=== PATIENT | male | born 1955 | race African-American/Black ===

== ENCOUNTER 2021-09-22 18:43 | Inpatient (IN) | payer OTHER ==
[~2021-09-22] VITALS: Ht 182.9 cm; Wt 104.8 kg
[2021-09-22 19:11] LABS: BASOPHILS % 0.8 % (0.0-2.0); EOSINOPHILS % 1.4 % (0.0-5.0); HEMATOCRIT. 36.9 % (42.0-52.0); HEMOGLOBIN. 11.9 g/dL (14.0-18.0); LYMPHOCYTES % 14.6 % (20.0-50.0); MEAN CORPUSCULAR HEMOGLOBIN 23.5 pg (28.0-32.0); MEAN CORPUSCULAR VOLUME 72.9 fL (80.0-94.0); MEAN PLATELET VOLUME 8.5 fl (7.4-10.4); MONOCYTES % 6.1 % (2.0-8.0); NEUTROPHILS % 77.1 % (40.0-76.0); PLATELET 332 x1000/uL (130-400); RED BLOOD CELL COUNT 5.07 mill/uL (4.7-6.1); RED CELL DISTRIBUTION WIDTH 18.3 % (11.6-14.6)
[2021-09-22 19:16] LABS: CHLORIDE 103 mEq/L (98-107)
[2021-09-22] MEDS ORDERED: ALBUTEROL (0.083%) 2.5MG/3ML NEB HHN STA (19:30)
[2021-09-22] MEDS ORDERED: IPRATROPIUM BROMIDE (0.02%) 0.5MG/2.5ML NEB HHN STA (19:30)
[2021-09-22] MEDS ORDERED: METHYLPREDNISOLONE SOD SUCC 125 MG/2 ML VIAL IV STA (19:30)
[2021-09-22 19:40] LABS: BG BASE EXCESS 1.5 mmol/L (-2.0-2.0); BG CARBOXYHEMOGLOBIN 0.6 % (0.5-1.5); BG DEOXYHEMOGLOBIN 2.4 % (0.0-5.0); BG FRACTION INSPIRED OXYGEN 100; BG HCO3 ACT 27.3 mmol/L (22.0-26.0); BG METHEMOGLOBIN 0.2 % (0.0-1.5); BG OXYGEN SATURATION 97.6 % (92.0-98.5); BG OXYHEMOGLOBIN 96.8 % (94.0-97.0); BG PCO2 48.5 mmHg (35.0-45.0); BG PH 7.369 (7.350-7.450); BG PO2 102.5 mmHg (75.0-100.0); BG SAMPLE SITE RIGHT RADIAL; BG TOTAL HEMOGLOBIN 12.4 g/dL (12.0-18.0); BG VENT MODE MASK - NRB
[2021-09-22] MEDS ORDERED: ONDANSETRON HCL 4MG/2ML INJ IV STA (21:47)
[2021-09-22] MEDS ORDERED: MORPHINE SULFATE 4 MG/ML CPJ (NOT FOR IM USE) IV STA (21:47)
[2021-09-22] MEDS ORDERED: CEFTRIAXONE 1 G PREMIX 50 ML IV ONE (22:00)
[2021-09-22] MEDS ORDERED: IPRATROPIUM/ALBUTEROL 0.5-3(2.5)MG/3ML NEB HHN PRN (22:15)
[2021-09-22] MEDS ORDERED: MAGNESIUM/ALUMINUM HYDROXIDE/SIMETHICONE 30ML UDC PO PRN (22:15)
[2021-09-22] MEDS ORDERED: NALOXONE HCL 0.4MG/ML VIAL IV PRN (22:15)
[2021-09-22] MEDS ORDERED: DIPHENHYDRAMINE 50MG/ML VIAL IV PRN (22:15)
[2021-09-23] MEDS: MORPHINE SULFATE 2 MG/ML CPJ (NOT FOR IM USE) IV PRN ×5 (04:52→22:08)
[2021-09-23] MEDS: SODIUM CHLORIDE 0.9% INJ 3ML FLUSH IVF SCH (05:41)
[2021-09-23 05:45] LABS: HEMATOCRIT. 36.9 % (42.0-52.0); HEMOGLOBIN. 11.5 g/dL (14.0-18.0); MEAN CORPUSCULAR HEMOGLOBIN 22.8 pg (28.0-32.0); MEAN CORPUSCULAR VOLUME 72.9 fL (80.0-94.0); PLATELET 324 x1000/uL (130-400); RED BLOOD CELL COUNT 5.07 mill/uL (4.7-6.1); RED CELL DISTRIBUTION WIDTH 18.6 % (11.6-14.6)
[2021-09-23 05:54] LABS: CHLORIDE 103 mEq/L (98-107)
[2021-09-23] MEDS ORDERED: LIDOCAINE HCL/EPINEPHRINE 1%-EPI 1:100,000 30 ML VIAL INFIL ONE (07:00)
[2021-09-23] MEDS ORDERED: LIDOCAINE HCL/EPINEPHRINE 1%-EPI 1:100,000 20 ML VIAL INFIL ONE (07:15)
[2021-09-23] MEDS ORDERED: LIDOCAINE HCL/EPINEPHRINE 1%-EPI 1:100,000 10 ML VIAL INFIL ONE (07:15)
[2021-09-23] MEDS: LORAZEPAM 2MG/ML CPJ IV PRN (08:55)
[2021-09-23] MEDS ORDERED: MORPHINE SULFATE 4 MG/ML CPJ (NOT FOR IM USE) IV SCH (09:00)
[2021-09-23] MEDS ORDERED: LORAZEPAM 2MG/ML CPJ IV NR (09:00)
[2021-09-23] MEDS ORDERED: MORPHINE SULFATE 4 MG/ML CPJ (NOT FOR IM USE) IV NR ×2 (09:22→11:33)
[2021-09-23 11:05] LABS: PLATELET ESTIMATE NORMAL
[2021-09-23] MEDS ORDERED: LIDOCAINE HCL 1% 10 MG/ML 10ML VIAL IJ NR ×2 (11:15)
[2021-09-23 12:00] VITALS: BP_SYST 144; BP_DIAS 87; BP_DIAS 89
[2021-09-23 13:23] LABS: CHLORIDE 102 mEq/L (98-107)
[2021-09-23 13:28] LABS: BG BASE EXCESS 0.9 mmol/L (-2.0-2.0); BG CARBOXYHEMOGLOBIN 0.3 % (0.5-1.5); BG DEOXYHEMOGLOBIN 0.6 % (0.0-5.0); BG HCO3 ACT 27.6 mmol/L (22.0-26.0); BG METHEMOGLOBIN 0.3 % (0.0-1.5); BG OXYGEN SATURATION 99.4 % (92.0-98.5); BG OXYHEMOGLOBIN 98.8 % (94.0-97.0); BG PCO2 53.5 mmHg (35.0-45.0); BG PO2 252.6 mmHg (75.0-100.0); BG SAMPLE SITE RIGHT RADIAL; BG VENT MODE VAPOTHERM
[2021-09-23] MEDS ORDERED: SODIUM POLYSTYRENE SULFONATE 15 G/60 ML BOT PO NR (13:45)
[2021-09-23 14:00] VITALS: BP 138/86
[2021-09-23 16:00] VITALS: BP 154/105
[2021-09-23 18:00] VITALS: BP 128/88
[2021-09-23] MEDS ORDERED: PNEUMOCOCCAL 23-VAL P-SAC VAC 0.5 ML IM ONE (19:00)
[2021-09-23] MEDS: PREDNISONE 20MG TABLET PO SCH ×3 (19:30→23:00)
[2021-09-23 20:00] VITALS: BP 127/85
[2021-09-23] MEDS ORDERED: PREDNISONE 20MG TABLET PO SCH ×2 (23:00)
[2021-09-23] MEDS ORDERED: ALBUTEROL (0.083%) 2.5MG/3ML NEB HHN NR (23:00)
[2021-09-23] MEDS ORDERED: PREDNISONE 10MG TABLET PO SCH (23:00)
[2021-09-23] MEDS: PREDNISONE 10MG TABLET PO SCH (23:04)
[2021-09-23] MEDS: FAMOTIDINE 20MG TABLET PO SCH (23:04)
[2021-09-23] MEDS ORDERED: PRED-276 PO (23:14)
[2021-09-23] MEDS ORDERED: FAMO40TA7 PO (23:15)
[2021-09-23] MEDS ORDERED: FLUT1BLS3 INH (23:18)
[2021-09-23] MEDS ORDERED: CARI350T27 PO (23:20)
[2021-09-23] MEDS ORDERED: FURO20TA4 PO (23:20)
[2021-09-23] MEDS ORDERED: SULF1TAB48 PO ×2 (23:21→23:34)
[2021-09-23] MEDS ORDERED: NINT150C PO (23:22)
[2021-09-23] MEDS ORDERED: IPRA3AMP9 HHN (23:22)
[2021-09-23] MEDS ORDERED: IPRA4AER INH (23:23)
[2021-09-24] VITALS (12 sets, daily range): BP systolic 105–148; BP diastolic 76–92
[2021-09-24] MEDS: HYDROCODONE/ACETAMINOPHEN 5/325MG TABLET PO PRN ×2 (01:23→08:37)
[2021-09-24] MEDS: IPRATROPIUM/ALBUTEROL 0.5-3(2.5)MG/3ML NEB HHN SCH ×5 (05:26→21:27)
[2021-09-24] MEDS: MORPHINE SULFATE 2 MG/ML CPJ (NOT FOR IM USE) IV PRN ×5 (05:28→21:54)
[2021-09-24] MEDS: SULFAMETHOXAZOLE/TRIMETHOPRIM 800/160MG TABLET PO SCH (08:29)
[2021-09-24] MEDS: PREDNISONE 10MG TABLET PO SCH (08:29)
[2021-09-24] MEDS: PREDNISONE 20MG TABLET PO SCH (08:30)
[2021-09-24] MEDS: FUROSEMIDE 20MG TABLET PO SCH (08:30)
[2021-09-24 10:15] LABS: HEMATOCRIT 37.3 % (42.0-52.0); HEMOGLOBIN 11.8 g/dL (14.0-18.0); MEAN CORPUSCULAR HEMOGLOBIN 22.8 pg (28.0-32.0); MEAN CORPUSCULAR VOLUME 72.4 fL (80.0-94.0); PLATELET 317 x1000/uL (130-400); RED BLOOD CELL COUNT 5.16 mill/uL (4.7-6.1); RED CELL DISTRIBUTION WIDTH 17.9 % (11.6-14.6)
[2021-09-24 10:30] LABS: CHLORIDE 100 mEq/L (98-107)
[2021-09-24] MEDS: HYDROCODONE/ACETAMINOPHEN 10/325MG TABLET PO PRN ×2 (12:52→17:38)
[2021-09-24] MEDS: SODIUM CHLORIDE 0.9% INJ 3ML FLUSH IVF SCH ×2 (14:15→22:00)
[2021-09-24] MEDS: FAMOTIDINE 20MG TABLET PO SCH (21:54)
[2021-09-25] VITALS (18 sets, daily range): BP systolic 127–177; BP diastolic 77–101
[2021-09-25] MEDS: IPRATROPIUM/ALBUTEROL 0.5-3(2.5)MG/3ML NEB HHN PRN (00:38)
[2021-09-25] MEDS: MORPHINE SULFATE 2 MG/ML CPJ (NOT FOR IM USE) IV PRN ×7 (01:03→21:09)
[2021-09-25] MEDS: SODIUM CHLORIDE 0.9% INJ 3ML FLUSH IVF SCH ×2 (06:59→14:26)
[2021-09-25 07:20] LABS: BASOPHILS % 0.3 % (0.0-2.0); EOSINOPHILS % 0.7 % (0.0-5.0); HEMATOCRIT. 36.4 % (42.0-52.0); HEMOGLOBIN. 11.3 g/dL (14.0-18.0); LYMPHOCYTES % 16.5 % (20.0-50.0); MEAN CORPUSCULAR HEMOGLOBIN 22.7 pg (28.0-32.0); MEAN CORPUSCULAR VOLUME 72.7 fL (80.0-94.0); MEAN PLATELET VOLUME 8.6 fl (7.4-10.4); MONOCYTES % 8.2 % (2.0-8.0); NEUTROPHILS % 74.3 % (40.0-76.0); PLATELET 341 x1000/uL (130-400); RED BLOOD CELL COUNT 5.01 mill/uL (4.7-6.1); RED CELL DISTRIBUTION WIDTH 17.8 % (11.6-14.6)
[2021-09-25 07:54] LABS: CHLORIDE 99 mEq/L (98-107)
[2021-09-25] MEDS: HYDROCODONE/ACETAMINOPHEN 10/325MG TABLET PO PRN ×3 (08:57→17:12)
[2021-09-25] MEDS: FUROSEMIDE 20MG TABLET PO SCH (08:57)
[2021-09-25] MEDS: PREDNISONE 20MG TABLET PO SCH (08:58)
[2021-09-25] MEDS: PREDNISONE 10MG TABLET PO SCH (08:58)
[2021-09-25] MEDS: ACETAMINOPHEN 325MG TABLET PO PRN (10:47)
[2021-09-25] MEDS: GUAIFENESIN 200MG/10ML SUGAR FREE UDC PO PRN (19:01)
[2021-09-25] MEDS: FAMOTIDINE 20MG TABLET PO SCH (21:08)
[2021-09-25] MEDS: LORAZEPAM 2MG/ML CPJ IV PRN (21:09)
[2021-09-26] VITALS (13 sets, daily range): BP systolic 125–167; BP diastolic 65–109
[2021-09-26] MEDS: SODIUM CHLORIDE 0.9% INJ 3ML FLUSH IVF SCH ×4 (00:19→21:00)
[2021-09-26] MEDS: MORPHINE SULFATE 2 MG/ML CPJ (NOT FOR IM USE) IV PRN ×4 (05:41→21:01)
[2021-09-26] MEDS: GUAIFENESIN 200MG/10ML SUGAR FREE UDC PO PRN (06:02)
[2021-09-26 06:35] LABS: BASOPHILS % 0.2 % (0.0-2.0); EOSINOPHILS % 3.2 % (0.0-5.0); HEMATOCRIT. 32.4 % (42.0-52.0); HEMOGLOBIN. 10.3 g/dL (14.0-18.0); LYMPHOCYTES % 19.6 % (20.0-50.0); MEAN CORPUSCULAR HEMOGLOBIN 23.1 pg (28.0-32.0); MEAN CORPUSCULAR VOLUME 72.8 fL (80.0-94.0); MEAN PLATELET VOLUME 8.3 fl (7.4-10.4); MONOCYTES % 8.3 % (2.0-8.0); NEUTROPHILS % 68.7 % (40.0-76.0); PLATELET 314 x1000/uL (130-400); RED BLOOD CELL COUNT 4.45 mill/uL (4.7-6.1); RED CELL DISTRIBUTION WIDTH 17.8 % (11.6-14.6)
[2021-09-26 06:37] LABS: CHLORIDE 101 mEq/L (98-107)
[2021-09-26] MEDS: SULFAMETHOXAZOLE/TRIMETHOPRIM 800/160MG TABLET PO SCH (08:15)
[2021-09-26] MEDS: PREDNISONE 20MG TABLET PO SCH (08:15)
[2021-09-26] MEDS: PREDNISONE 10MG TABLET PO SCH (08:15)
[2021-09-26] MEDS: FUROSEMIDE 20MG TABLET PO SCH (08:15)
[2021-09-26] MEDS: TRELEGY ELLIPTA ORI SCH (08:17)
[2021-09-26] MEDS: CLONIDINE 0.1MG TABLET PO PRN (08:17)
[2021-09-26] MEDS: FAMOTIDINE 20MG TABLET PO SCH (21:00)
[2021-09-27] VITALS (12 sets, daily range): BP systolic 135–165; BP diastolic 64–108
[2021-09-27] MEDS: MORPHINE SULFATE 2 MG/ML CPJ (NOT FOR IM USE) IV PRN ×6 (01:31→21:19)
[2021-09-27] MEDS: SODIUM CHLORIDE 0.9% INJ 3ML FLUSH IVF SCH ×3 (05:32→21:19)
[2021-09-27] MEDS: CLONIDINE 0.1MG TABLET PO PRN (05:32)
[2021-09-27 05:56] LABS: BASOPHILS % 0.3 % (0.0-2.0); HEMATOCRIT. 36.9 % (42.0-52.0); HEMOGLOBIN. 11.6 g/dL (14.0-18.0); LYMPHOCYTES % 19.7 % (20.0-50.0); MEAN CORPUSCULAR HEMOGLOBIN 22.8 pg (28.0-32.0); MEAN CORPUSCULAR VOLUME 72.5 fL (80.0-94.0); MEAN PLATELET VOLUME 8.1 fl (7.4-10.4); MONOCYTES % 7.9 % (2.0-8.0); NEUTROPHILS % 69.1 % (40.0-76.0); PLATELET 354 x1000/uL (130-400); RED BLOOD CELL COUNT 5.09 mill/uL (4.7-6.1); RED CELL DISTRIBUTION WIDTH 17.8 % (11.6-14.6)
[2021-09-27] MEDS: PREDNISONE 20MG TABLET PO SCH (08:21)
[2021-09-27] MEDS: FUROSEMIDE 20MG TABLET PO SCH (08:21)
[2021-09-27] MEDS: TRELEGY ELLIPTA ORI SCH (08:21)
[2021-09-27] MEDS: PREDNISONE 10MG TABLET PO SCH (08:21)
[2021-09-27] MEDS: GUAIFENESIN 200MG/10ML SUGAR FREE UDC PO PRN (08:22)
[2021-09-27] MEDS: LORAZEPAM 2MG/ML CPJ IV PRN ×3 (11:52→21:19)
[2021-09-27] MEDS: FAMOTIDINE 20MG TABLET PO SCH (21:19)
[2021-09-28] VITALS (12 sets, daily range): BP systolic 133–176; BP diastolic 86–109
[2021-09-28] MEDS: MORPHINE SULFATE 2 MG/ML CPJ (NOT FOR IM USE) IV PRN ×4 (00:50→16:45)
[2021-09-28] MEDS: LORAZEPAM 2MG/ML CPJ IV PRN ×4 (01:20→16:44)
[2021-09-28] MEDS: HYDRALAZINE 20MG/ML VIAL IV PRN (04:17)
[2021-09-28 06:08] LABS: BASOPHILS % 0.3 % (0.0-2.0); EOSINOPHILS % 3.2 % (0.0-5.0); HEMATOCRIT. 38.8 % (42.0-52.0); HEMOGLOBIN. 12.3 g/dL (14.0-18.0); LYMPHOCYTES % 16.8 % (20.0-50.0); MEAN CORPUSCULAR HEMOGLOBIN 23.2 pg (28.0-32.0); MEAN CORPUSCULAR VOLUME 73.4 fL (80.0-94.0); MEAN PLATELET VOLUME 8.5 fl (7.4-10.4); MONOCYTES % 8.5 % (2.0-8.0); NEUTROPHILS % 71.2 % (40.0-76.0); PLATELET 379 x1000/uL (130-400); RED BLOOD CELL COUNT 5.28 mill/uL (4.7-6.1); RED CELL DISTRIBUTION WIDTH 18.1 % (11.6-14.6)
[2021-09-28] MEDS ORDERED: LIDOCAINE HCL/EPINEPHRINE 1%-EPI 1:100,000 50 ML VIAL INFIL ONE (06:15)
[2021-09-28 06:23] LABS: CHLORIDE 100 mEq/L (98-107)
[2021-09-28] MEDS ORDERED: KETAMINE HCL 50 MG/ML 10ML IV ONE ×2 (06:30→06:45)
[2021-09-28] MEDS ORDERED: LORAZEPAM 2MG/ML CPJ IV SCH (06:45)
[2021-09-28] MEDS: TRELEGY ELLIPTA ORI SCH (09:00)
[2021-09-28 09:59] LABS: BG BASE EXCESS 2.6 mmol/L (-2.0-2.0); BG CARBOXYHEMOGLOBIN 1.3 % (0.5-1.5); BG DEOXYHEMOGLOBIN 9.9 % (0.0-5.0); BG FRACTION INSPIRED OXYGEN 100; BG HCO3 ACT 28.3 mmol/L (22.0-26.0); BG METHEMOGLOBIN 0.2 % (0.0-1.5); BG OXYGEN SATURATION 89.9 % (92.0-98.5); BG OXYHEMOGLOBIN 88.6 % (94.0-97.0); BG PCO2 48.1 mmHg (35.0-45.0); BG PH 7.388 (7.350-7.450); BG PO2 58.4 mmHg (75.0-100.0); BG SAMPLE SITE RIGHT RADIAL; BG TOTAL HEMOGLOBIN 13.7 g/dL (12.0-18.0); BG VENT MODE MASK - NRB
[2021-09-28] MEDS: PREDNISONE 10MG TABLET PO SCH (10:12)
[2021-09-28] MEDS: SULFAMETHOXAZOLE/TRIMETHOPRIM 800/160MG TABLET PO SCH (10:13)
[2021-09-28] MEDS: FUROSEMIDE 20MG TABLET PO SCH (10:13)
[2021-09-28] MEDS: PREDNISONE 20MG TABLET PO SCH (10:13)
[2021-09-28] MEDS: DOCUSATE SODIUM 100MG CAPSULE PO PRN (10:13)
[2021-09-28] MEDS: POLYETHYLENE GLYCOL 3350 (17GM) 1 DOSE PACK PO SCH (10:13)
[2021-09-28] MEDS: FAMOTIDINE 20MG TABLET PO SCH (21:20)
[2021-09-28] MEDS: HYDROCODONE/ACETAMINOPHEN 10/325MG TABLET PO PRN (21:20)
[2021-09-29] VITALS (14 sets, daily range): BP systolic 136–153; BP diastolic 82–110
[2021-09-29] MEDS: DOCUSATE SODIUM 100MG CAPSULE PO PRN ×2 (00:50→08:45)
[2021-09-29] MEDS: MORPHINE SULFATE 2 MG/ML CPJ (NOT FOR IM USE) IV PRN ×4 (00:50→18:14)
[2021-09-29] MEDS: LORAZEPAM 2MG/ML CPJ IV PRN ×2 (03:06→21:05)
[2021-09-29] MEDS: FUROSEMIDE 20MG TABLET PO SCH (08:45)
[2021-09-29] MEDS: POLYETHYLENE GLYCOL 3350 (17GM) 1 DOSE PACK PO SCH (08:45)
[2021-09-29] MEDS: PREDNISONE 20MG TABLET PO SCH (08:45)
[2021-09-29] MEDS: PREDNISONE 10MG TABLET PO SCH (08:45)
[2021-09-29] MEDS: TRELEGY ELLIPTA ORI SCH (08:49)
[2021-09-29] MEDS: HYDRALAZINE 20MG/ML VIAL IV PRN (10:10)
[2021-09-29] MEDS ORDERED: LACTULOSE 20G/30ML UDC PO PRN (13:00)
[2021-09-29] MEDS: SODIUM CHLORIDE 0.9% INJ 3ML FLUSH IVF SCH ×2 (14:14→21:06)
[2021-09-29] MEDS: LACTULOSE 20G/30ML UDC PO PRN (18:12)
[2021-09-29] MEDS: FAMOTIDINE 20MG TABLET PO SCH (21:05)
[2021-09-30] VITALS (12 sets, daily range): BP systolic 121–144; BP diastolic 78–100
[2021-09-30] MEDS: MORPHINE SULFATE 2 MG/ML CPJ (NOT FOR IM USE) IV PRN ×6 (05:15→22:41)
[2021-09-30] MEDS: SODIUM CHLORIDE 0.9% INJ 3ML FLUSH IVF SCH ×3 (05:15→22:05)
[2021-09-30] MEDS: PREDNISONE 20MG TABLET PO SCH (08:16)
[2021-09-30] MEDS: PREDNISONE 10MG TABLET PO SCH (08:16)
[2021-09-30] MEDS: POLYETHYLENE GLYCOL 3350 (17GM) 1 DOSE PACK PO SCH (08:16)
[2021-09-30] MEDS: FUROSEMIDE 20MG TABLET PO SCH (08:16)
[2021-09-30] MEDS: TRELEGY ELLIPTA ORI SCH (08:17)
[2021-09-30 10:31] LABS: HEMATOCRIT. 37.8 % (42.0-52.0); HEMOGLOBIN. 11.6 g/dL (14.0-18.0); MEAN CORPUSCULAR HEMOGLOBIN 22.5 pg (28.0-32.0); MEAN CORPUSCULAR VOLUME 73.3 fL (80.0-94.0); MEAN PLATELET VOLUME 7.9 fl (7.4-10.4); PLATELET 383 x1000/uL (130-400); RED BLOOD CELL COUNT 5.16 mill/uL (4.7-6.1); RED CELL DISTRIBUTION WIDTH 17.9 % (11.6-14.6)
[2021-09-30 10:37] LABS: CHLORIDE 96 mEq/L (98-107)
[2021-09-30 14:42] LABS: PLATELET ESTIMATE NORMAL
[2021-09-30] MEDS: FAMOTIDINE 20MG TABLET PO SCH (21:14)
[2021-09-30] MEDS: HYDROCODONE/ACETAMINOPHEN 5/325MG TABLET PO PRN (21:36)
[2021-10-01] VITALS (13 sets, daily range): BP systolic 122–151; BP diastolic 87–104
[2021-10-01] MEDS: MORPHINE SULFATE 2 MG/ML CPJ (NOT FOR IM USE) IV PRN ×3 (03:58→14:30)
[2021-10-01] MEDS: SODIUM CHLORIDE 0.9% INJ 3ML FLUSH IVF SCH ×3 (06:05→21:02)
[2021-10-01] MEDS: PREDNISONE 20MG TABLET PO SCH (08:31)
[2021-10-01] MEDS: PREDNISONE 10MG TABLET PO SCH (08:31)
[2021-10-01] MEDS: POLYETHYLENE GLYCOL 3350 (17GM) 1 DOSE PACK PO SCH (08:31)
[2021-10-01] MEDS: TRELEGY ELLIPTA ORI SCH (08:31)
[2021-10-01] MEDS: FUROSEMIDE 20MG TABLET PO SCH (08:32)
[2021-10-01] MEDS: LACTULOSE 20G/30ML UDC PO PRN (14:14)
[2021-10-01] MEDS: DOCUSATE SODIUM 100MG CAPSULE PO PRN (14:15)
[2021-10-01] MEDS: HYDROCODONE/ACETAMINOPHEN 5/325MG TABLET PO PRN ×2 (16:30→20:58)
[2021-10-01] MEDS ORDERED: BISACODYL 10MG SUPP PR PRN (17:15)
[2021-10-01] MEDS: ONDANSETRON HCL 4MG/2ML INJ IV PRN (18:36)
[2021-10-01] MEDS: PIPERACILLIN/TAZOBACTAM 3.375 G in DEXTROSE 5% WATER 50 ML IV SCH (20:23)
[2021-10-01] MEDS: FAMOTIDINE 20MG TABLET PO SCH (20:57)
[2021-10-02] VITALS (11 sets, daily range): BP systolic 117–144; BP diastolic 81–103
[2021-10-02] MEDS: HYDROCODONE/ACETAMINOPHEN 5/325MG TABLET PO PRN ×3 (03:21→23:40)
[2021-10-02] MEDS: DOCUSATE SODIUM 100MG CAPSULE PO PRN (03:30)
[2021-10-02] MEDS: SODIUM CHLORIDE 0.9% INJ 3ML FLUSH IVF SCH ×3 (05:20→21:12)
[2021-10-02] MEDS: PIPERACILLIN/TAZOBACTAM 3.375 G in DEXTROSE 5% WATER 50 ML IV SCH (05:20)
[2021-10-02 06:50] LABS: BASOPHILS % 0.2 % (0.0-2.0); EOSINOPHILS % 1.1 % (0.0-5.0); HEMATOCRIT. 34.5 % (42.0-52.0); HEMOGLOBIN. 10.9 g/dL (14.0-18.0); LYMPHOCYTES % 7.4 % (20.0-50.0); MEAN CORPUSCULAR HEMOGLOBIN 23.4 pg (28.0-32.0); MEAN CORPUSCULAR VOLUME 74.2 fL (80.0-94.0); MEAN PLATELET VOLUME 8.6 fl (7.4-10.4); MONOCYTES % 8.5 % (2.0-8.0); NEUTROPHILS % 82.8 % (40.0-76.0); PLATELET 373 x1000/uL (130-400); RED BLOOD CELL COUNT 4.65 mill/uL (4.7-6.1); RED CELL DISTRIBUTION WIDTH 17.5 % (11.6-14.6)
[2021-10-02] MEDS: MORPHINE SULFATE 2 MG/ML CPJ (NOT FOR IM USE) IV PRN ×2 (06:52→20:36)
[2021-10-02 07:03] LABS: CHLORIDE 94 mEq/L (98-107)
[2021-10-02] MEDS: PREDNISONE 10MG TABLET PO SCH (09:28)
[2021-10-02] MEDS: FUROSEMIDE 20MG TABLET PO SCH (09:28)
[2021-10-02] MEDS: PREDNISONE 20MG TABLET PO SCH (09:28)
[2021-10-02] MEDS: POLYETHYLENE GLYCOL 3350 (17GM) 1 DOSE PACK PO SCH (09:28)
[2021-10-02] MEDS: TRELEGY ELLIPTA ORI SCH (09:28)
[2021-10-02] MEDS: ONDANSETRON HCL 4MG/2ML INJ IV PRN (18:57)
[2021-10-02] MEDS: FAMOTIDINE 20MG TABLET PO SCH (20:39)
[2021-10-03] VITALS (12 sets, daily range): BP systolic 121–153; BP diastolic 76–102
[2021-10-03] MEDS: MORPHINE SULFATE 2 MG/ML CPJ (NOT FOR IM USE) IV PRN ×3 (03:43→11:17)
[2021-10-03] MEDS: SODIUM CHLORIDE 0.9% INJ 3ML FLUSH IVF SCH ×2 (06:22→13:43)
[2021-10-03 07:01] LABS: BASOPHILS % 0.1 % (0.0-2.0); EOSINOPHILS % 2.1 % (0.0-5.0); HEMATOCRIT. 32.3 % (42.0-52.0); HEMOGLOBIN. 10.3 g/dL (14.0-18.0); LYMPHOCYTES % 10.3 % (20.0-50.0); MEAN CORPUSCULAR HEMOGLOBIN 23.3 pg (28.0-32.0); MEAN CORPUSCULAR VOLUME 73.4 fL (80.0-94.0); MEAN PLATELET VOLUME 8.5 fl (7.4-10.4); MONOCYTES % 8.3 % (2.0-8.0); NEUTROPHILS % 79.2 % (40.0-76.0); PLATELET 371 x1000/uL (130-400); RED CELL DISTRIBUTION WIDTH 16.8 % (11.6-14.6)
[2021-10-03 07:34] LABS: CHLORIDE 96 mEq/L (98-107)
[2021-10-03] MEDS: TRELEGY ELLIPTA ORI SCH (09:00)
[2021-10-03] MEDS: FUROSEMIDE 20MG TABLET PO SCH (10:10)
[2021-10-03] MEDS: POLYETHYLENE GLYCOL 3350 (17GM) 1 DOSE PACK PO SCH (10:10)
[2021-10-03] MEDS: PREDNISONE 20MG TABLET PO SCH (10:11)
[2021-10-03] MEDS: PREDNISONE 10MG TABLET PO SCH (10:11)
[2021-10-03] MEDS ORDERED: MORPHINE SULFATE 2 MG/ML CPJ (NOT FOR IM USE) IV NR (13:30)
[2021-10-03] MEDS: HYDROCODONE/ACETAMINOPHEN 5/325MG TABLET PO PRN (16:11)
[2021-10-04] VITALS (12 sets, daily range): BP systolic 114–151; BP diastolic 51–100
[2021-10-04] MEDS: SODIUM CHLORIDE 0.9% INJ 3ML FLUSH IVF SCH ×4 (04:28→21:56)
[2021-10-04] MEDS: FAMOTIDINE 20MG TABLET PO SCH ×2 (04:28→21:56)
[2021-10-04] MEDS: MORPHINE SULFATE 2 MG/ML CPJ (NOT FOR IM USE) IV PRN ×2 (04:29→08:48)
[2021-10-04 07:08] LABS: BASOPHILS % 0.3 % (0.0-2.0); HEMOGLOBIN. 10.7 g/dL (14.0-18.0); LYMPHOCYTES % 8.9 % (20.0-50.0); MEAN CORPUSCULAR HEMOGLOBIN 23.1 pg (28.0-32.0); MEAN CORPUSCULAR VOLUME 73.7 fL (80.0-94.0); MEAN PLATELET VOLUME 8.3 fl (7.4-10.4); MONOCYTES % 7.3 % (2.0-8.0); NEUTROPHILS % 81.5 % (40.0-76.0); PLATELET 391 x1000/uL (130-400); RED BLOOD CELL COUNT 4.61 mill/uL (4.7-6.1)
[2021-10-04 07:23] LABS: CHLORIDE 96 mEq/L (98-107)
[2021-10-04] MEDS: HYDROCODONE/ACETAMINOPHEN 5/325MG TABLET PO PRN ×4 (07:56→21:56)
[2021-10-04] MEDS: POLYETHYLENE GLYCOL 3350 (17GM) 1 DOSE PACK PO SCH (08:52)
[2021-10-04] MEDS: PREDNISONE 10MG TABLET PO SCH (08:52)
[2021-10-04] MEDS: FUROSEMIDE 20MG TABLET PO SCH (08:52)
[2021-10-04] MEDS: TRELEGY ELLIPTA ORI SCH (08:54)
[2021-10-04] MEDS: PREDNISONE 20MG TABLET PO SCH (08:59)
[2021-10-04] MEDS ORDERED: MORPHINE SULFATE 2 MG/ML CPJ (NOT FOR IM USE) IV SCH (09:30)
[2021-10-04] MEDS: TRAMADOL 50MG TABLET PO PRN (14:55)
[2021-10-05] VITALS (12 sets, daily range): BP systolic 122–158; BP diastolic 41–92
[2021-10-05] MEDS: TRAMADOL 50MG TABLET PO PRN (01:42)
[2021-10-05] MEDS: HYDROCODONE/ACETAMINOPHEN 5/325MG TABLET PO PRN ×3 (06:08→15:47)
[2021-10-05] MEDS: SODIUM CHLORIDE 0.9% INJ 3ML FLUSH IVF SCH ×3 (06:08→21:04)
[2021-10-05 07:09] LABS: HEMATOCRIT. 36.6 % (42.0-52.0); HEMOGLOBIN. 11.4 g/dL (14.0-18.0); MEAN CORPUSCULAR VOLUME 73.7 fL (80.0-94.0); MEAN PLATELET VOLUME 8.8 fl (7.4-10.4); PLATELET 438 x1000/uL (130-400); RED BLOOD CELL COUNT 4.97 mill/uL (4.7-6.1); RED CELL DISTRIBUTION WIDTH 17.4 % (11.6-14.6)
[2021-10-05 07:38] LABS: CHLORIDE 94 mEq/L (98-107)
[2021-10-05] MEDS: MORPHINE SULFATE 2 MG/ML CPJ (NOT FOR IM USE) IV PRN (08:45)
[2021-10-05] MEDS: POLYETHYLENE GLYCOL 3350 (17GM) 1 DOSE PACK PO SCH (08:48)
[2021-10-05] MEDS: PREDNISONE 10MG TABLET PO SCH (08:48)
[2021-10-05] MEDS: PREDNISONE 20MG TABLET PO SCH (08:49)
[2021-10-05] MEDS: FUROSEMIDE 20MG TABLET PO SCH (08:49)
[2021-10-05] MEDS: TRELEGY ELLIPTA ORI SCH (08:51)
[2021-10-05 11:02] LABS: PLATELET ESTIMATE INCREASED
[2021-10-05] MEDS ORDERED: HYDROMORPHONE HCL/PF 2MG/ML CPJ IV NR (18:45)
[2021-10-05] MEDS ORDERED: LIDOCAINE/PRILOCAINE CREAM 5 GM TUBE TOP NR (19:30)
[2021-10-05] MEDS: ONDANSETRON HCL 4MG/2ML INJ IV PRN (21:02)
[2021-10-05] MEDS: FAMOTIDINE 20MG TABLET PO SCH (21:02)
[2021-10-06] VITALS (15 sets, daily range): BP systolic 122–143; BP diastolic 66–96
[2021-10-06] MEDS ORDERED: HYDROCODONE/ACETAMINOPHEN 5/325MG TABLET PO PRN (01:00)
[2021-10-06] MEDS ORDERED: HYDROCODONE/ACETAMINOPHEN 5/325MG TABLET ONE (01:02)
[2021-10-06] MEDS: IPRATROPIUM/ALBUTEROL 0.5-3(2.5)MG/3ML NEB HHN PRN (01:34)
[2021-10-06 01:51] LABS: BG BASE EXCESS 4.3 mmol/L (-2.0-2.0); BG CARBOXYHEMOGLOBIN 0.8 % (0.5-1.5); BG FRACTION INSPIRED OXYGEN 100; BG HCO3 ACT 29.1 mmol/L (22.0-26.0); BG METHEMOGLOBIN 0.3 % (0.0-1.5); BG OXYHEMOGLOBIN 97.9 % (94.0-97.0); BG PCO2 44.3 mmHg (35.0-45.0); BG PH 7.436 (7.350-7.450); BG PO2 130.4 mmHg (75.0-100.0); BG SAMPLE SITE RIGHT RADIAL; BG TOTAL HEMOGLOBIN 12.9 g/dL (12.0-18.0); BG VENT MODE MASK - NRB
[2021-10-06] MEDS: MORPHINE SULFATE 2 MG/ML CPJ (NOT FOR IM USE) IV PRN ×3 (02:25→15:53)
[2021-10-06 06:41] LABS: HEMATOCRIT. 36.9 % (42.0-52.0); HEMOGLOBIN. 11.4 g/dL (14.0-18.0); MEAN CORPUSCULAR HEMOGLOBIN 22.8 pg (28.0-32.0); MEAN CORPUSCULAR VOLUME 73.7 fL (80.0-94.0); MEAN PLATELET VOLUME 8.7 fl (7.4-10.4); PLATELET 429 x1000/uL (130-400); RED BLOOD CELL COUNT 5.01 mill/uL (4.7-6.1); RED CELL DISTRIBUTION WIDTH 17.5 % (11.6-14.6)
[2021-10-06 06:45] LABS: CHLORIDE 97 mEq/L (98-107)
[2021-10-06] MEDS: SODIUM CHLORIDE 0.9% INJ 3ML FLUSH IVF SCH ×3 (07:03→21:19)
[2021-10-06] MEDS ORDERED: FUROSEMIDE 40MG TABLET ONE (08:57)
[2021-10-06] MEDS: PREDNISONE 20MG TABLET PO SCH (08:58)
[2021-10-06] MEDS: POLYETHYLENE GLYCOL 3350 (17GM) 1 DOSE PACK PO SCH (09:00)
[2021-10-06] MEDS: TRELEGY ELLIPTA ORI SCH (09:00)
[2021-10-06] MEDS ORDERED: PREDNISONE 10MG TABLET ONE (09:03)
[2021-10-06] MEDS: FUROSEMIDE 20MG TABLET PO SCH (09:04)
[2021-10-06] MEDS: PREDNISONE 10MG TABLET PO SCH (09:04)
[2021-10-06] MEDS ORDERED: HYDROMORPHONE HCL/PF 2MG/ML CPJ IV SCH (10:30)
[2021-10-06 11:17] LABS: PLATELET ESTIMATE NORMAL
[2021-10-06] MEDS ORDERED: CEFTRIAXONE 1 G PREMIX 50 ML IV SCH (12:00)
[2021-10-06] MEDS ORDERED: CEFTRIAXONE 1,000 MG in DEXTROSE 5% WATER 50 ML IV SCH (14:00)
[2021-10-06] MEDS ORDERED: MORPHINE SULFATE 4 MG/ML CPJ (NOT FOR IM USE) IV NR (15:45)
[2021-10-06] MEDS ORDERED: LIDOCAINE HCL 1% 20ML VIAL (Pyxis) INJ INFIL NR (16:00)
[2021-10-06] MEDS ORDERED: MORPHINE SULFATE 2 MG/ML CPJ (NOT FOR IM USE) IV NR (16:45)
[2021-10-06] MEDS: FAMOTIDINE 20MG TABLET PO SCH (21:12)
[2021-10-06] MEDS: ACETAMINOPHEN 325MG TABLET PO PRN (21:16)
[2021-10-07] VITALS: BP 136/92
== END 2021-10-07 05:10 | disposition short-term general hospital (02) | DRG 189 ==
LOC: ER 18:43 → MICUSO 21:42 → EDBEDREQ 21:46 → EDBEDREQTM 21:46 → 5EST 09-23 11:17 → CVICU 10-06 15:45 → 5EST 10-06 17:52
PROVIDERS: ADMIT Internal Medicine; ATTEND Internal Medicine
PROC: 5A09357 Assistance with Respiratory Ventilation, Less than 24 Consecutive Hours, Continuous Positive Airway Pressure (ICD-10-PCS; 2021-09-22)
PROC: 0W9B00Z Drainage of Left Pleural Cavity with Drainage Device, Open Approach (ICD-10-PCS; 2021-09-23)
PROC: 5A0935A Assistance with Respiratory Ventilation, Less than 24 Consecutive Hours, High Flow/Velocity Cannula (ICD-10-PCS; 2021-09-23)
PROC: 0W9B00Z Drainage of Left Pleural Cavity with Drainage Device, Open Approach (ICD-10-PCS; 2021-09-28)
PROC: 5A0935A Assistance with Respiratory Ventilation, Less than 24 Consecutive Hours, High Flow/Velocity Cannula (ICD-10-PCS; 2021-09-28)
PROC: 5A0935A Assistance with Respiratory Ventilation, Less than 24 Consecutive Hours, High Flow/Velocity Cannula (ICD-10-PCS; 2021-09-29)
PROC: 0W2BX0Z Change Drainage Device in Left Pleural Cavity, External Approach (ICD-10-PCS; principal; 2021-10-06)
DX: J96.20 Acute and chronic respiratory failure, unspecified whether with hypoxia or hypercapnia (principal); J93.0 Spontaneous tension pneumothorax; R65.10 Systemic inflammatory response syndrome (SIRS) of non-infectious origin without acute organ dysfunction; D84.822 Immunodeficiency due to external causes; J84.10 Pulmonary fibrosis, unspecified; Z20.822 Contact with and (suspected) exposure to COVID-19; T38.0X5A Adverse effect of glucocorticoids and synthetic analogues, initial encounter; D64.9 Anemia, unspecified; E87.5 Hyperkalemia; Z79.52 Long term (current) use of systemic steroids; Z87.891 Personal history of nicotine dependence; Z79.899 Other long term (current) drug therapy; Z99.81 Dependence on supplemental oxygen; Y92.89 Other specified places as the place of occurrence of the external cause
CPT/HCPCS: 36415; 36600; 71045; 71250; 80048; 80053; 82375; 82805; 83880; 84145; 84484; 85025; 85027; 87426; 90732; 92950; 93005; 93970; 94640; 94644; 94660; 97110; 97162; 99291; J0360; J0696; J1170; J2060; J2270; J2405; J2543; J2930; J3490; J7060; J7512; A4315